=== PATIENT | female | born 2000 ===

== ENCOUNTER 2022-04-28 13:55 | Emergency (ER) | payer BC, OTHER ==
[2022-04-28] MEDS ORDERED: Ketorolac Tromethamine 30 MG/ML VIAL ONE (17:14)
== END 2022-04-28 15:55 | disposition home or self-care (01) ==
LOC: CSHERS 13:55
DX: M77.01 Medial epicondylitis, right elbow (principal); R20.2 Paresthesia of skin
CPT/HCPCS: 36415; 85379; 96372; 99284; J1885